=== PATIENT | female | born 1960 | race Caucasian/White ===

== ENCOUNTER 2022-10-30 08:57 | Outpatient (OUT) | payer OTHER, SELFPAY ==
--- NOTE | 2022-10-30 09:07 | US_ITS ---
The [address] [address] Patient Name: BORIS NIELSEN MRN: [id number] date: 1960 Sex: F Assigned Patient Location: US Current Patient Location: US Accession/Order Number: [id number] Exam Date: 10/30/2022 09:05 Report Date: 10/30/2022 10:32 At the request of: SHAIKH MIKE Procedure: US renal BI Ultrasound kidneys, bilateral HISTORY: Mass Of Kidney Of Unknown Nature, N28.89 COMPARISON: CT 10/20/2022. TECHNIQUE: Transabdominal ultrasound imaging of both kidneys was performed. FINDINGS: Both kidneys demonstrate normal echotexture and echogenicity. The right kidney measures 12.1 x 5.9 x 6.8 cm. There is a partially exophytic structure with posterior acoustic enhancement seen off the lateral right kidney upper pole to interpolar region measuring 1.5 x 1.4 x 1.3 cm and is compatible with a cyst. There is no hydronephrosis of right kidney. The left kidney measures 10.1 x 5.7 x 5.9 cm. No hydronephrosis of left kidney. The bladder is moderately distended with prevoid volume at 253 cc. No focal bladder abnormality. IMPRESSION: 1. Partially exophytic 1.5 cm cyst at the lateral margin right kidney upper pole to interpolar region, and consistent with a cyst. It correlates with the lesion described on CT 10/20/2022. 2. No hydronephrosis involving either kidney. 3. Moderately distended bladder and it appears grossly normal. Electronically authenticated by: HUGO SNYDER Date: 10/30/2022 10:32
== END 2022-10-30 08:58 ==
LOC: US 09:00
PROVIDERS: PCP Internal Medicine; Visit Provider Internal Medicine
DX: N28.89 Other specified disorders of kidney and ureter (principal); N28.1 Cyst of kidney, acquired; N32.89 Other specified disorders of bladder
CPT/HCPCS: 76775

== ENCOUNTER 2022-11-08 16:33 | Outpatient (REF) | payer OTHER, SELFPAY | END 2022-11-08 16:34 | disposition home or self-care (01) | LOC: LAB 16:33 | PROVIDERS: PCP Internal Medicine; Visit Provider Internal Medicine | DX: N39.0 Urinary tract infection, site not specified (principal) | CPT/HCPCS: 87086 ==

== ENCOUNTER 2023-04-12 07:33 | Outpatient (OUT) | payer OTHER, SELFPAY ==
--- NOTE | 2023-04-12 | ECG_ITS ---
The [facility] Test Date: 2023-04-12 Pat Name: BORIS NIELSEN Department: Room: - Gender: Female Insulation Foreman: : 1960 Requested By: SHAIKH MIKE Order Number: [id number] Reading MD: HOPE CHILEL Measurements Intervals [place] Rate: 55 P: 42 SC: 153 QRS: 85 QRSD: 87 T: 50 QT: 423 QTc: 406 Interpretive Statements SINUS BRADYCARDIA No previous ECG available for comparison Electronically Signed On 04-14-2023 19:28:29 EST by HOPE CHILEL
[2023-04-12 08:05] LABS: Basophils Percent Auto 0.5 % (0.2-2.0); Eosinophils Absolute Auto 0.2 10^3/uL (0.0-0.7); Eosinophils Percent Auto 1.8 % (0.9-7.0); Hematocrit 40.7 % (36.0-48.0); Hemoglobin 13.1 g/dL (12.0-16.0); Immature Granulocytes Abs Auto 0.01 10^3/uL (0.00-0.03); Immature Granulocytes Pct Auto 0.1 % (0.0-0.5); Lymphocytes Absolute Auto 2.3 10^3/uL (1.2-3.8); Lymphocytes Percent Auto 27.2 % (20.5-60.0); Mean Corpuscular HGB Conc 32.2 g/dL (29.9-35.2); Mean Corpuscular Hemoglobin 30.8 pg (26.7-34.0); Mean Corpuscular Volume 95.5 fL (81.0-99.0); Mean Platelet Volume 11.6 fL (9.5-13.5); Monocytes Absolute Auto 0.5 10^3/uL (0.3-0.8); Monocytes Percent Auto 5.4 % (1.7-12.0); Neutrophils Absolute Auto 5.5 10^3/uL (1.4-6.5); Platelet Count 200 10^3/uL (150-450); Red Blood Count 4.26 10^6/uL (4.20-5.40); Red Cell Distribution Width 12.2 % (11.0-15.0); White Blood Count 8.4 10^3/uL (4.0-11.0)
[2023-04-12 08:34] LABS: Estimated Average Glucose 111 mg/dL; Glycohemoglobin A1C 5.5 % (4.5-6.2)
[2023-04-12 08:37] LABS: Alanine Aminotransferase 19 U/L (14-59); Albumin Globulin Ratio 1.2; Albumin Level 3.8 g/dL (3.4-5.0); Alkaline Phosphatase 92 U/L (46-116); Anion Gap 13.6; Aspartate Amino Transferase 12 U/L (15-37); BUN Creatinine Ratio 26.2; Bilirubin Total 0.5 mg/dL (0.2-1.0); Calcium 8.5 mg/dL (8.5-10.1); Carbon Dioxide 28.4 mmol/L (21.0-32.0); Chloride 104 mmol/L (98-107); Chol HDL Ratio 3.1; Cholesterol 147 mg/dL (<=200); Estimated GFR (African America >60 (>=60); Estimated GFR (Non-African Ame >60 (>=60); Globulin 3.3 g/dL; Glucose 107 mg/dL (74-106); HDL Cholesterol 47 mg/dL (40-60); Sodium 142 mmol/L (136-145); Thyroid Stimulating Hormone 1.036 uIU/mL (0.358-3.740); Total Protein 7.1 g/dL (6.4-8.2); Triglycerides 125 mg/dL (<=150)
== END 2023-04-12 07:34 | disposition home or self-care (01) ==
LOC: CARD 07:34
PROVIDERS: PCP Internal Medicine; Visit Provider Internal Medicine
DX: E78.5 Hyperlipidemia, unspecified (principal); I10 Essential (primary) hypertension; Z13.1 Encounter for screening for diabetes mellitus; R53.83 Other fatigue; Z12.2 Encounter for screening for malignant neoplasm of respiratory organs; R06.09 Other forms of dyspnea
CPT/HCPCS: 36415; 80053; 80061; 83036; 84443; 85025; 93005

== ENCOUNTER 2025-02-24 09:30 | Outpatient (OUT) | payer MEDICARE, SELFPAY ==
--- OUTSIDE RECORDS SUMMARY | 2025-01-22 13:00 | XMS_ITS ---
Author Name Auto Generated Organization OHIP Care Team Providers Care Slope Hoist Operator Name Role Phone Adore Schmidt Attending Unavailable SHAIKH MCKEON Primary Care Unavailable Adore Schmidt Attending Unavailable NAOMI CARDOSO Attending Unavailable NAOMI CARDOSO Attending Unavailable PROBLEMS No Problem Records Found PROCEDURES No Procedure Records Found RESULTS PATIENT LETTER [facility] Observed: 01/22/2025 2:36 PM Status: F Source: [facility] Patient Letter [facility] January 22, 2025 MARY NIELSEN [address] [place] [id number] : 1960 Dear Mary , You missed your scheduled appointment on: 01/22/2025. Please note our appointment slots fill quickly. When you fail to cancel or reschedule an appointment the office is unable to fill the appointment slot that was reserved for you. In the future, we ask that you call 24 hours in advance to cancel your appointment. Our current reminder system gives you the opportunity to cancel by responding to our reminder text, phone call or email. You can also call the office to reschedule during normal business hours or use our on-line scheduling portal at your convenience. Our goal is to provide convenient and quality care to all of our patients. We appreciate your consideration regarding any future cancellations. Sincerely, [facility] [address] [place] [address] ALLERGIES DATE TYPE / CODE NAME / CODE REACTION SEVERITY SOURCE 04/04/2013 /[id number](SNOMED CT) ibuprofen Unknown [facility] ENCOUNTERS ADMIT/DISCHARGE ACCOUNT NUMBER ADMITTING ENCOUNTER CLASS LOCATION SOURCE 01/22/2025/ 5 [id number] Ambulatory EU Leel ding:TITI Lal [facility] 01/07/2025/ 5 [id number] Ambulatory Building:[facility] 12/07/2024/ 5 [id number] Ambulatory Building:[facility] 07/24/2024/ 5 [id number] Ambulatory EU SandJaniauil ding:TITI Lal [facility] PAYERS ENCOUNTER GUARANTOR PAYER SUBSCRIBER SOURCE 01/22/2025 [facility] ~~56 (HP) Primary Insurance:[facility]: [id number] ctive Date:2022-05-[address] [id number]: MARY ZAMORA [facility] 01/07/2025 MARY NIELSENB: [place], [place] [address]Heq: (HP) Primary Insurance:MEDICA REPolicy Number: [id number] tive Date:2024-06-27 tano Name:Medicare MARY NIELSENB: [id number] [place] [address] [facility] 12/07/2024 MARY NIELSENB: [place], [place] [address]Ben: (HP) Primary Insurance:MEDICA REPolicy Number: [id number] tive Date:2024-06-27 tano Name:Medicare MARY NIELSENB: [id number] [place] [address] [facility] 07/24/2024 Triny ESCALANTE TrinyGABRIEL NIELSEN LOISDOB[facility]: ~~(39 (NN) Primary Insurance:[facility] URCEPolicy Number: [id number] ctive Date:2022-05-27P [address] [id number]: [facility]
--- NOTE | 2025-02-24 09:32 | MM_ITS ---
Patient Name: BORIS NIELSEN MR#: [id number] : 1960 Exam Date: 02/24/2025 Ordering Doctor: PRICE CARDOSO CNP RADIOLOGY REPORT PROCEDURE: MM TOMOSYNTHESIS SCREENING BI COMPARISON: MG MAMM SCREEN 3D LEEANNA CAD, 09/28/2022. MG MAMM SCREEN 3D LEEANNA CAD, 09/19/2021. MG MAMM SCREEN LEEANNA W CAD, 02/16/2015. MG MAMM SCREEN LEEANNA W CAD, 02/26/2013. INDICATIONS: Screening Calculator Name NCI Breast Cancer Risk Assessment Tool 5 Year Breast Cancer Risk 3.10% Lifetime Breast Cancer Risk 11.00% Personal Breast Cancer No Personal Ovarian Cancer No Treatments None Family Cancers Mother with breast cancer at age 59. LOCATION: The [facility] BREAST COMPOSITION: The breasts are almost entirely fatty. FINDINGS: DIAGNOSTIC CATEGORY 1--NEGATIVE. RIGHT BREAST: No significant suspicious finding. LEFT BREAST: No significant suspicious finding. RECOMMENDATIONS: ROUTINE MAMMOGRAM AND CLINICAL EVALUATION IN 12 MONTHS. Dictated by: Matthew Krause DO on 02/24/2025 at 15:24 Approved by: Matthew Krause DO on 02/24/2025 at 15:24
== END 2025-02-24 09:31 | disposition home or self-care (01) ==
LOC: MAMMO 09:30
PROVIDERS: PCP Nurse Practitioner; Visit Provider Nurse Practitioner
DX: Z12.31 Encounter for screening mammogram for malignant neoplasm of breast (principal); Z80.3 Family history of malignant neoplasm of breast
CPT/HCPCS: 77063; 77067